=== PATIENT | male | born 1975 | race Caucasian/White ===

== ENCOUNTER 2018-06-05 17:09 | Emergency (ER) | payer OTHER, SELFPAY ==
[2018-06-05 17:26] VITALS: BP 120/73; PULSE 64; RESP 16; TEMP 37.1; O2SAT 98
--- NOTE | 2018-06-05 17:29 | DI.RAD.S_ITS ---
PROCEDURE: XR FOOT RT MIN 3V INDICATIONS: injury TECHNIQUE: The views of the foot were acquired. COMPARISON: None. FINDINGS: Bones: There is a comminuted fracture involving the tuft of the third distal phalanx with mild displacement. No suspicious bony lesions. Soft tissues: No tibiotalar joint effusion. Achilles tendon appears normal. IMPRESSION: Mildly displaced third distal phalangeal tuft fracture. Dictated by: Lexi Harley M.D. on 06/05/2018 at 18:01 Approved by: Lexi Harley M.D. on 06/05/2018 at 18:03
--- NOTE | 2018-06-05 18:06 | ED_ITS ---
HPI - Extremity Injury (Lower) <Liz Griffiths PA-C - Last Filed: 06/05/18 21:30> General Chief Complaint: Extremity Injury, Lower Stated Complaint: R foot 3rd digit injured Time Seen by Provider: 06/05/18 17:47 Source: patient Mode of arrival: ambulatory Limitations: no limitations History of Present Illness HPI Narrative: this healthy 43-year-old male had an extension ladder slide down and smashed his right 3rd toe, which has been bleeding and painful. Concerned about fracture. He denies any other pain or injury. He is in the and states vaccines are up-to-date including tetanus. Related Data Previous Rx's Medication Instructions Recorded cephalexin [Keflex] 500 mg PO Q6H 7 Days #28 cap 06/05/18 Allergies Allergy/AdvReac Type Severity Reaction Status Date / Time No Known Drug Allergies Allergy Verified 06/05/18 17:26 Review of Systems <Liz Griffiths PA-C - Last Filed: 06/05/18 21:30> Review of Systems All systems reviewed & are unremarkable except as noted in HPI and below Exam <Liz Griffiths PA-C - Last Filed: 06/05/18 21:30> Narrative Exam Narrative: GENERAL APPEARANCE: Patient sitting comfortably, in no distress. LUNGS: Clear to auscultation bilaterally. HEART: Rate and rhythm regular without murmur, normal S1 and S2, no S3 or S4. DERMATOLOGIC: There are multiple cracks in the right 3rd toenail which is bleeding from the medial border as well as the nail breaks. There is a small avulsion at the proximal medial nailborder. Ecchymoses present under the nail and at the distal toe tip MUSCULOSKELETAL: Mild effusion right distal 3rd toe with some tenderness at the distal portion, none over the other toes or metatarsals. Able to plantar and dorsiflex the toe. NEUROVASCULAR: Right foot and toes warm and pink with brisk cap refill, sensation grossly intact Initial Vital Signs Initial Vital Signs: Vital Signs Temperature 98.8 F 06/05/18 17:26 Pulse Rate 64 06/05/18 17:26 Respiratory Rate 16 06/05/18 17:26 Blood Pressure 120/73 06/05/18 17:26 Pulse Oximetry 98 06/05/18 17:26 <Shelton Waldron DO - Last Filed: 06/05/18 21:47> Initial Vital Signs Initial Vital Signs: Vital Signs Temperature 98.8 F 06/05/18 17:26 Pulse Rate 64 06/05/18 17:26 Respiratory Rate 16 06/05/18 17:26 Blood Pressure 120/73 06/05/18 17:26 Pulse Oximetry 98 06/05/18 17:26 Procedures <Liz Griffiths PA-C - Last Filed: 06/05/18 21:30> Laceration Repair Laceration 1: Site: lower extremity (right middle toe) Side (If applicable): right Size (cm): 0.5 Description: stellate, irregular and clean Depth: simple, single layer Local Anesthetic: lidocaine 1% Amount of anesthesia used (mL): 5 Pre-repair: wound explored Skin layer closed with: other (chromic gut (nail bed)) Size (cm): 5-0 Number of sutures: 2 Technique: simple, interrupted Misc Procedure Name of Procedure: toenail excision Side (if applicable): right Location: middle toenail. Toe was cleaned with alcohol and digital block obtained in the usual fashion with 5 cc 1% lidocaine plain in total. Nail was already fractured and removed in pieces, tolerated well. Nail bed is macerated at the medial border, sutured as noted and bandaged Course <Liz Griffiths PA-C - Last Filed: 06/05/18 21:30> Additional Information: Dr. Waldron also saw and evaluated patient. Advised nail excision, suturing and IV abx. Patient will f/u with flight surgeon tomorrow for recheck and determine activity restrictions. He was comfortable walking in tennis shoes with toes sidra taped. Orders Ordered: ED Orders 06/05/18 17:29 XR foot RT min 3V Stat Discontinued Medications Cefazolin Sodium/Dextrose (Ancef) 2 gm in 100 mls @ 200 mls/hr IV NOW ONE Stop: 06/05/18 20:44 Last Infusion: 06/05/18 20:51 Dose: 0 mls/hr Admin: 06/05/18 20:08 Dose: 200 mls/hr Ibuprofen (Advil) 800 mg PO NOW ONE Stop: 06/05/18 18:49 Last Admin: 06/05/18 18:53 Dose: 800 mg Vital Signs - 8 hr 06/05/18 17:26 Temperature 98.8 F Pulse Rate 64 Respiratory Rate 16 Blood Pressure 120/73 Pulse Oximetry 98 <Shelton Waldron DO - Last Filed: 06/05/18 21:47> Orders Ordered: ED Orders 06/05/18 17:29 XR foot RT min 3V Stat Discontinued Medications Cefazolin Sodium/Dextrose (Ancef) 2 gm in 100 mls @ 200 mls/hr IV NOW ONE Stop: 06/05/18 20:44 Last Infusion: 06/05/18 20:51 Dose: 0 mls/hr Admin: 06/05/18 20:08 Dose: 200 mls/hr Ibuprofen (Advil) 800 mg PO NOW ONE Stop: 06/05/18 18:49 Last Admin: 06/05/18 18:53 Dose: 800 mg Vital Signs - 8 hr 06/05/18 17:26 Temperature 98.8 F Pulse Rate 64 Respiratory Rate 16 Blood Pressure 120/73 Pulse Oximetry 98 MDM - Extremity Injury (Lower) <Liz Griffiths PA-C - Last Filed: 06/05/18 21:30> Imaging Data foot: Radiologist's impression: 17 Liz Griffiths PA-C Find Patient Imaging ACTIVITY DATE EXAM STATUS AUTHOR 06/05/18 17:29 Signed Nelida Harley [address] [address] XRay Report Signed Patient: Marvin Corrales [facility]#: [id number] : 1975Acct:[id number] Age/Sex: 43 / MDate of Service: 06/05/18 Loc: ED Accession Number: [id number] Procedure: XR foot RT min 3V Ordering Provider: Perri Eckert D.O. PROCEDURE: XR FOOT RT MIN 3V INDICATIONS: injury TECHNIQUE: The views of the foot were acquired. COMPARISON: None. FINDINGS: Bones: There is a comminuted fracture involving the tuft of the third distal phalanx with mild displacement. No suspicious bony lesions. Soft tissues: No tibiotalar joint effusion. Achilles tendon appears normal. IMPRESSION: Mildly displaced third distal phalangeal tuft fracture. Dictated by: Lexi Harley M.D. on 06/05/2018 at 18:01 Approved by: Lexi Harley M.D. on 06/05/2018 at 18:03 Discharge Plan Departure Patient Disposition: Home Clinical Impression: Open fracture of toe of right foot Discharge Date/Time: 06/05/18 21:00 Interventions: ED Discharge Assessment Last Done: 06/05/18 20:59 Instructions: DI for Toe Fracture Activity Restrictions/Additional Instructions: the end of your toe has breaks in it from the injury. These are aligned fairly well and typically this will heal with avoiding pressure on the toe, so please keep the toes taped together as we have done tonight. If you are comfortable walking in regular shoes with the toes taped it is okay to do so, or you can wear the surgical shoe that we gave you tonight. You can take over- the-counter pain medicine such as ibuprofen or Tylenol as needed. This is considered an open fracture because of the damage to your nail and nail bed. We have placed a couple of sutures there to help this heal. They will dissolve on their own (or your flight surgeon may decide to remove them next week). [facility] to fruit or nut picker tomorrow. I have sent in a week's supply, but your flight surgeon may decide to have them take you for a shorter amount of time. you have also had a dose of IV antibiotics tonight. [place] to determine any work restrictions. Return to the ED if you have any acutely worsening symptoms such as severe pain, sudden increase in swelling or numbness in the foot or toes. Thank you for your service! Prescriptions: New cephalexin [Keflex] 500 mg capsule 500 mg PO Q6H 7 Days Qty: 28 RF: 0 Referrals: [facility] [Provider Group] <Shelton Waldron DO - Last Filed: 06/05/18 21:47> [facility] Attending Xin Attestation: I was available for consultation during this patient's emergency department encounter
[2018-06-05] MEDS: IBUPROFEN 400 MG TABLET 800 MG PO (18:53)
[2018-06-05] MEDS: CEFAZOLIN 2 GM/100 ML FROZ.PIGGY IV (20:08)
--- NOTE | 2018-06-05 20:29 | PC.NURSE ---
Cleansed wound with normal saline. Pt tolerated with out complaint. Applied nonstick dressing and coban for slight pressure. Discussed with pt on care for wound, stitches, and dressing care. Verbalizes understanding.
== END 2018-06-05 21:00 | disposition home or self-care (01) ==
PROVIDERS: Emergency Provider Internal Medicine
DX: S92.531B Displaced fracture of distal phalanx of right lesser toe(s), initial encounter for open fracture (principal); W23.0XXA Caught, crushed, jammed, or pinched between moving objects, initial encounter
CPT/HCPCS: 11730; 12001; 73630; 96365; 99283; J0690

== ENCOUNTER → 2018-11-28 09:10 | Outpatient (CLI) | payer OTHER, SELFPAY ==
--- NOTE | 2018-11-28 | DI.MRI.S_ITS ---
PROCEDURE: MR KNEE LT WO CON INDICATIONS: Pain in unspecified knee - LEFT TECHNIQUE: Noncontrast sagittal PD fast spin echo and T2 fast spin echo with fat saturation, sagittal 3-D FLASH with fat saturation; coronal T1 spin echo and PD fast spin echo with fat saturation, and axial PD fast spin echo with fat saturation through the knee. COMPARISON: None. FINDINGS: Image quality: Excellent. Menisci: The medial and lateral menisci demonstrate normal morphology and internal signal. The meniscal root ligaments appear intact. Cruciate ligaments: There is partial tear or sprain of the distal aspect of the anterior cruciate ligament. The posterior cruciate ligament appears intact. Medial structures: The medial collateral ligament appears intact. The posterior oblique ligament, semimembranosus tendon insertions, oblique popliteal ligament, and meniscocapsular junction appear intact. Visualized portions of the pes anserinus tendons appear normal. No abnormal bursal fluid. Lateral structures: There is mild spurring of the lateral collateral ligament. The biceps femoris tendon appear intact. The popliteus tendon appears normal; the popliteofibular ligament appears intact. The posterosuperior and anteroinferior popliteomeniscal fascicles appear intact. The arcuate and fabellofibular ligaments appear intact, on either side of the lateral inferior geniculate artery. Iliotibial band appears normal. Anterior structures: The quadriceps and patellar tendons appear intact. Patellar alignment is normal. No femoral trochlear dysplasia or ventral trochlear prominence. No edema in the infrapatellar fat pad. Bones and cartilage: No fractures. There is contusion of the posterior aspect of the lateral tibial plateau. There is a 5 mm full-thickness cartilage defect in the lateral tibial plateau (series 7 image 21, series and image 25 and series 5 image 22). Joint space: There is small knee joint effusion. A tiny Marcos's cyst is suspected. Normal appearing synovial plicae are incidentally noted. IMPRESSION: 1. Partial tear or sprain of the anterior cruciate ligament. 2. Mild sprain of the lateral collateral ligament. 3. Bone contusion and a 5 mm full-thickness cartilage defect in the lateral tibial plateau. . 4. Small knee joint effusion. Dictated by: Lexi Harley M.D. on 11/28/2018 at 10:52 Approved by: Lexi Harley M.D. on 11/28/2018 at 13:56
== END ==
PROVIDERS: PCP Student in an Organized Health Care Education/Training Program; Visit Provider Student in an Organized Health Care Education/Training Program
DX: M25.562 Pain in left knee (principal); S83.512A Sprain of anterior cruciate ligament of left knee, initial encounter; S83.422A Sprain of lateral collateral ligament of left knee, initial encounter; S80.02XA Contusion of left knee, initial encounter; M25.462 Effusion, left knee
CPT/HCPCS: 73721

== ENCOUNTER 2024-11-13 07:10 | Day surgery (SDC) | payer OTHER, SELFPAY ==
--- NOTE | 2024-11-13 | PATH_ITS ---
[facility] Accession Number: [id number] No. of containers..02 Tissue . 01 Material submitted: . PART A: colon - COLON, TRANSVERSE POLYP PART B: colon - COLON, DESCENDING POLYP X 3 . 01 Diagnosis: Part A: COLON, TRANSVERSE POLYP : Serrated polyp, cannot exclude the possibility of sessile serrated adenoma. . Part B: COLON, DESCENDING POLYP X 3: 1. Sessile serrated adenoma. 2. Colonic mucosa with benign lymphoid aggregates. [facility] 11/18/20241855 Local . 01 Electronically signed: . Dudley Villatoro MD, Pathologist NPI- [id number] . 01 Gross description: . A. Received in formalin with two patient identifiers and transverse polyp, is a single brumfield soft tissue fragment 0.4 cm in greatest dimension. Submitted in cassette A1. . B. Received in formalin with two patient identifiers and descending polyps, are three brumfield soft tissue fragments 0.4 to 1.2 cm in greatest dimension. Submitted in cassette B1. ([id number]) /[facility] 11/18/20241855 Local . 01 Pathologist provided ICD-10: D12.3, D12.4 . 01 CPT . 407623, [id number] Specimen Comment: A courtesy copy of this report has been sent to [phone] Performed at: [address] [id number] MD Dudley Villatoro MD Phone: [phone]
[2024-11-13 07:27] VITALS: BP 129/80; PULSE 67; RESP 16; TEMP 36.5; O2SAT 97
[2024-11-13] MEDS: LACTATED RINGERS 1,000 ML 42 ML IV (07:31)
--- NOTE | 2024-11-13 07:39 | PM.HP.IH.1 ---
History of Present Illness History of Present Illness Date Patient Seen: 11/13/24 Time Patient Seen: 07:39 Chief complaint: Colonoscopy Narrative: Marvin is a 49-year-old man who presents for a screening colonoscopy, his first. No family history of colon cancer. [facility] Surgical History (Updated 06/05/18 @ 19:01 by Liz Griffiths PA-C) Status post vasectomy Social History Smoking Status: Never smoker Meds Home Medications and Allergies Home Medications Medication Instructions Recorded Confirmed Type sodium,potassium,mag sulfates 17.5 See Rx Instructions PO .COMPLEX 10/06/24 Rx gram-3.13 gram-1.6 gram oral soln #354 mL (Suprep Bowel Prep Kit) Allergies Allergy/AdvReac Type Severity Reaction Status Date / Time No Known Drug Allergies Allergy Verified 06/05/18 17:26 Exam Vital Signs (past 8 hours): - 11/13/24 07:27 Temperature 97.7 F Pulse Rate 67 Respiratory Rate 16 Blood Pressure 129/80 Pulse Oximetry 97 Oxygen Delivery Method Room Air Oxygen Delivery Method Room Air Const General: healthy appearing Assessment & Plan Assessment and plan (1) Colon cancer screening: Status: Acute Plan Colonoscopy Time-Based Coding :: [TOTAL MINUTES] spent with patient and on the chart (including review of chart, obtaining history, exam, reviewing outside data, placing orders, documenting exam and treatment plan, and counseling patient) on [DATE]. [employer]EE Medical Service Technician Document charge(s): No
--- NOTE | 2024-11-13 08:43 | P.OP.COLON_ITS ---
Operative Date/Time/Diagnoses Date of procedure: 11/13/24 Time of procedure: 08:43 Pre-op diagnosis: Colon cancer screening Post-op diagnosis: same Procedure & Clinicians Study performed: Colonoscopy Same procedure as scheduled: Yes Surgeon: Gil Llanes Procedure Notes Procedure in detail: Surgeon: Gil Llanes MD Anesthesia: Minda Mg MD Procedure: The patient was brought to the endoscopy suite, placed in left lateral decubitus position. The patient was connected to monitoring devices. A time-out was performed. Sedation was administered. Once the patient was adequately sedated, a digital rectal exam was performed and was normal. The scope was then inserted and advanced to the cecum where the appendiceal orifice was identified and photographed. The scope was then slowly withdrawn over greater than 6 minutes. The mucosa was thoroughly inspected. There was one sm all polyp in the transverse colon removed with a cold snare. There were 3 polyps in the descending colon removed with cold snare. The largest of the 3 was about 7 mm. The scope was retroflexed in the rectum. No other abnormalities were seen. The scope was straightened and removed. The patient was awakened and brought to recovery. Scope withdrawal time: 14 minutes Sedation time: 20 minutes EBL: 4 mL Findings: 4 polyps, the largest of which was about 7 mm Post-procedure Disposition: PACU
[2024-11-13 08:44] VITALS: BP 138/85; PULSE 64; RESP 16; TEMP 36.7; O2SAT 99
[2024-11-13 08:59] VITALS: BP 109/75; PULSE 68; RESP 16; O2SAT 100
== END 2024-11-13 09:09 | disposition home or self-care (01) ==
PROVIDERS: PCP Family Medicine; Referring Provider Surgery; Visit Provider Surgery
PROC: 0DJD8ZZ Inspection of Lower Intestinal Tract, Via Natural or Artificial Opening Endoscopic (ICD-10-PCS; CPT 45378; principal; 2024-11-13 08:15)
DX: Z12.11 Encounter for screening for malignant neoplasm of colon (principal); D12.3 Benign neoplasm of transverse colon; D12.4 Benign neoplasm of descending colon
CPT/HCPCS: 45385; J2704

== ENCOUNTER → 2025-04-17 10:37 | Outpatient (CLI) | payer OTHER, SELFPAY ==
[2025-04-17 11:27] LABS: Add Manual Diff / Slide Review NO; Hematocrit 43.7 % (41-53); Hemoglobin 15.2 g/dL (13.5-17.5); Lymphocytes Absolute Auto 1600 /uL (1100-4500); Mean Corpuscular HGB Conc 34.8 % (30-36); Mean Corpuscular Hemoglobin 30.9 PG (26-34); Mean Corpuscular Volume 88.8 fL (80-100); Platelet Count 182 X10^3/uL (150-400)
[2025-04-17 11:36] LABS: Hemoglobin A1C% w Est Avg Glu 5.1 % (4.0-6.0)
[2025-04-17 12:00] LABS: Alanine Aminotransferase 21 IU/L (<50); Albumin 4.7 g/dL (3.5-5.0); Albumin Globulin Ratio 1.7 (1.0-2.8); Alkaline Phosphatase 51 U/L (38-126); Blood Urea Nitrogen 24 mg/dL (9-20); Calcium 9.7 mg/dL (8.4-10.2); Carbon Dioxide 27 mmol/L (22-32); Chloride 107 mmol/L (98-107); Cholesterol 225 mg/dL (140-199); Estimated Glomerular Filt Rate > 60 mL/min (>60); Globulin 2.7 g/dL (1.7-4.1); Glucose 105 mg/dL (70-99); HDL Cholesterol 65 mg/dL (40-60); HEMOLYSIS < 15 (0-50); Potassium 4.7 mmol/L (3.4-5.1); Sodium 140 mmol/L (137-145); Total Protein 7.4 g/dL (6.3-8.2); Triglycerides 97 mg/dL (35-150)
[2025-04-17 12:28] LABS: Thyroid Stimulating Hormone 1.09 uIU/mL (0.47-4.68)
== END ==
PROVIDERS: PCP Family Medicine; Referring Provider Family Medicine; Visit Provider Family Medicine
DX: R73.9 Hyperglycemia, unspecified (principal); Z13.0 Encounter for screening for diseases of the blood and blood-forming organs and certain disorders involving the immune mechanism; Z13.220 Encounter for screening for lipoid disorders; Z13.29 Encounter for screening for other suspected endocrine disorder; Z13.6 Encounter for screening for cardiovascular disorders
CPT/HCPCS: 36415; 80053; 80061; 83036; 83721; 84443; 85025